=== PATIENT | female | born 1975 ===

== ENCOUNTER 2017-11-09 14:53 | Emergency (ER) | payer SELFPAY ==
[~2017-11-09] VITALS: Ht 157.5 cm; Wt 88.6 kg
[~2017-11-09 14:53] MED LIST: CEPH500C PO; DCS100C PO; HYDR-3583 PO; IBP600T1 PO; OXYC-12 PO; PREN1TAB39 PO
[2017-11-09] MEDS ORDERED: FAMOTIDINE 20 MG (PEPCID) TABLET PO STA (15:47)
--- NOTE | 2017-11-09 15:54 | ED Chest Pain ---
General Chief Complaint: Respiratory Problems Stated Complaint: CP Nursing Triage Note: patient reports SOA since thursday, gail reports that the SOA is worse in the morning and the evening before bed Nursing Sepsis Screen: No Definite Risk Source: patient Exam Limitations: language barrier (Kinyarwanda interpretation by ) History of Present Illness Date Seen by Provider: November 09, 2017 Time Seen by Provider: 15:41 Initial Comments The patient presents to the ER by private conveyance with a chief complaint for the past 3 days she's had some dull achy chest pressure and pain in the middle of her chest that is reproduced by palpation. She's had no shortness of breath, hemoptysis, cough. She has had this chest pain worked up in the past because she 's had episodes similar to this with a stress test that was negative. Her is concerned that she might just be depressed because she has lots of mild, nonspecific complaints that get worked up without any serious medical condition found. She is followed at [facility]. She is not on any medicine for her heart. She does not have a primary history of heart disease nor does she have primary family with a history of heart disease before the age of 50. She does not smoke nor does she have thyroid disorder, diabetes, hypertension. She is on control Allergies and Home Medications Allergies Coded Allergies: No Known Drug Allergies (Unverified , 06/12/11) Home Medications Cephalexin Monohydrate 500 Mg Capsule, 500 MG PO QID, (Reported) Take until gone. Hydrocodone Bit/Acetaminophen 1 Tab Tab, 1-2 TAB PO Q4HR PRN, (Reported) Vits W-Ca,Fe,Fa(<1MG) 1 Each Tablet, 1 TAB PO HS, (Reported) Patient Home Medication List Home Medication List Reviewed: Yes Review of Systems Constitutional: No chills, No diaphoresis EENTM: No Blurred Vision Respiratory: Denies Cough, Denies Orthopnea, Denies Shortness of Air Cardiovascular: See HPI, Chest Pain; Denies Edema, Denies Irregular Heart Rate , Denies Lightheadedness, Denies Palpitations, Denies Syncope Gastrointestinal: Denies Constipated, Denies Diarrhea, Denies Nausea Genitourinary: Denies Burning, Denies Discharge, Denies Flank Pain Musculoskeletal: No back pain, No joint pain Skin: No pruritus, No rash Psychiatric/Neurological: Denies Headache, Denies Numbness Past Afszfap-Rbzxvq-Kbqlbf Hx Patient Social History Alcohol Use: Denies Use Recreational Drug Use: No Smoking Status: Never a Smoker Recent Foreign Travel: No Contact w/Someone Who Travel: No Recent Infectious Disease Expo: No Recent Hopitalizations: No Immunizations Up To Date Date of Influenza Vaccine: May 03, 2012 Past Medical History Surgeries: Yes ( X2) Respiratory: No Cardiac: No Neurological: No Reproductive Disorders: No Gastrointestinal: No Musculoskeletal: No Endocrine: No Psychosocial: No Integumentary: No Blood Disorders: No Physical Exam Vital Signs Vital Signs - First Documented 11/09/17 15:29 Temp 98.6 Pulse 80 Resp 18 B/P (MAP) 113/74 (87) Pulse Ox 100 Capillary Refill : Less Than 3 Seconds General Appearance: No Apparent Distress, WD/WN, Anxious HEENT: PERRL/EOMI, Normal ENT Inspection, Pharynx Normal, Moist Mucous Membranes Neck: Full Range of Motion, Normal Inspection, Non Tender, Supple Respiratory: Lungs Clear, Normal Breath Sounds, No Accessory Muscle Use, No Respiratory Distress, Other (chest wall tender to palpation mildly) Cardiovascular: Regular Rate, Rhythm, No Edema, No Murmur, Normal Peripheral Pulses Gastrointestinal: Normal Bowel Sounds, Non Tender, Soft Extremity: Normal Capillary Refill, Normal Inspection, Normal Range of Motion, Non Tender, No Calf Tenderness, No Pedal Edema Neurologic/Psychiatric: Alert, Oriented x3, Depressed Affect Skin: Normal Color, Warm/Dry Progress/Results/Core Measures Results/Orders Lab Results Laboratory Tests Test 11/09/17 15:52 Range/Units White Blood Count 8.5 4.3-11.0 10^3/uL Red Blood Count 4.49 4.35-5.85 10^6/uL Hemoglobin 13.4 11.5-16.0 G/DL Hematocrit 40 35-52 % Mean Corpuscular Volume 89 80-99 FL Mean Corpuscular Hemoglobin 30 25-34 PG Mean Corpuscular Hemoglobin Concent 34 32-36 G/DL Red Cell Distribution Width 14.1 10.0-14.5 % Platelet Count 196 130-400 10^3/uL Mean Platelet Volume 11.2 H 7.4-10.4 FL Neutrophils (%) (Auto) 61 42-75 % Lymphocytes (%) (Auto) 27 12-44 % Monocytes (%) (Auto) 11 0-12 % Eosinophils (%) (Auto) 1 0-10 % Basophils (%) (Auto) 0 0-10 % Neutrophils # (Auto) 5.2 1.8-7.8 X 10^3 Lymphocytes # (Auto) 2.3 1.0-4.0 X 10^3 Monocytes # (Auto) 0.9 0.0-1.0 X 10^3 Eosinophils # (Auto) 0.1 0.0-0.3 10^3/uL Basophils # (Auto) 0.0 0.0-0.1 10^3/uL Prothrombin Time 13.3 12.2-14.7 SEC INR Comment 1.0 0.8-1.4 Activated Partial Thromboplast Time 27 24-35 SEC Sodium Level 138 135-145 MMOL/L Potassium Level 4.3 3.6-5.0 MMOL/L Chloride Level 106 98-107 MMOL/L Carbon Dioxide Level 22 21-32 MMOL/L Anion Gap 10 5-14 MMOL/L Blood Urea Nitrogen 12 7-18 MG/DL Creatinine 0.70 0.60-1.30 MG/DL Estimat Glomerular Filtration Rate > 60 BUN/Creatinine Ratio 17 Glucose Level 101 70-105 MG/DL Calcium Level 9.2 8.5-10.1 MG/DL Magnesium Level 2.3 1.8-2.4 MG/DL Total Bilirubin 0.3 0.1-1.0 MG/DL Aspartate Amino Transf (AST/SGOT) 15 5-34 U/L Alanine Aminotransferase (ALT/SGPT) 16 0-55 U/L Alkaline Phosphatase 87 40-136 U/L Myoglobin 20.2 10.0-92.0 NG/ML Troponin I < 0.30 <0.30 NG/ML Total Protein 7.6 6.4-8.2 GM/DL Albumin 4.1 3.2-4.5 GM/DL Lipase 38 8-78 U/L My Orders Orders - RAMOS KHAN Cbc With Automated Diff (11/09/17 15:47) Magnesium (11/09/17 15:47) Chest 1 View, Ap/Pa Only (11/09/17 15:47) Ekg Tracing (11/09/17 15:47) Cardiac Profile 1 (11/09/17 15:47) Comprehensive Metabolic Panel (11/09/17 15:47) Myoglobin Serum (11/09/17 15:47) Protime With Inr (11/09/17 15:47) Partial Thromboplastin Time (11/09/17 15:47) O2 (11/09/17 15:47) Monitor-Rhythm Ecg Trace Only (11/09/17 15:47) Aspirin Chewable Tablet (Baby Aspirin Ch (11/09/17 16:00) Saline Lock/Iv-Start (11/09/17 15:47) Lipase (11/09/17 15:47) Lidocaine 2% Viscous 15 Ml (Xylocaine Vi (11/09/17 16:00) Famotidine Tablet (Pepcid Tablet) (11/09/17 15:47) Antacid Suspension (Mylanta Suspension (11/09/17 16:00) Medications Given in ED Current Medications Medications Dose Ordered Sig/Rosio Route Start Time Stop Time Status Last Admin Dose Admin Al Hydrox/Mg Hydrox/Simethicone 30 ml ONCE ONCE PO 11/09/17 16:00 11/09/17 16:01 DC 11/09/17 16:12 30 ML Aspirin 324 mg ONCE ONCE PO 11/09/17 16:00 11/09/17 16:01 DC 11/09/17 16:12 324 MG Lidocaine HCl 15 ml ONCE ONCE PO 11/09/17 16:00 11/09/17 16:01 DC 11/09/17 16:12 15 ML Vital Signs/I&O 11/09/17 15:29 Temp 98.6 Pulse 80 Resp 18 B/P (MAP) 113/74 (87) Pulse Ox 100 Blood Pressure Mean: 87 Progress Progress Note #1: Time: 15:52 Progress Note Chest pain workup but if the troponins are negative she's been having this pain off and on for the past 3 days it's unlikely this is related to her heart. We' ll give her a GI cocktail see if this helps. There is low likelihood of DVT based on examination and history so pulmonary embolism is very unlikely. She's having no air hunger, cough, hemoptysis. Her chest wall is tender to palpation so costochondritis is possible. Progress Note #2: Time: 17:09 Progress Note Patient's pain was taken away with a GI cocktail. We will put her on some Carafate and omeprazole and have her follow up outpatient with her primary care provider. Initial ECG Impression Date: November 09, 2017 Initial ECG Impression Time: 15:42 Initial ECG Rate: 78 Initial ECG Rhythm: Normal Sinus Initial ECG Intervals: Normal Initial ECG Impression: Normal Initial ECG Comparisson: Unchanged Comment No ST elevation or depression Diagnostic Imaging Diagonstic Imaging: Xray Plain Films/CT/US/NM/MRI: chest (1v) Comments NAME: JULIUS [facility] REC#: [id number] PT STATUS: REG ER : 1975 PHYSICIAN: RAMOS KHAN MD ADMIT DATE: 11/09/17/ER Draft Date of Exam:11/09/17 CHEST 1 VIEW, AP/PA ONLY Portable AP chest at 4:01 p.m. INDICATION: Chest pain. FINDINGS: The heart size is at the upper limits of normal and the heart does seem somewhat more prominent than noted on the prior exam of 07/10/2014. This apparent increase in the heart size is in part related to the shallow degree of inspiration for this exam. The lungs are clear. There is no sign of failure, pneumonia or pleural effusion. The mediastinum is not widened. The osseous structures are intact. IMPRESSION: Allowing for the shallow degree of inspiration, there is no evidence for acute cardiopulmonary abnormality. Dictated on workstation # [id number] Dict: 11/09/17 1608 Trans: 11/09/17 1612 KB [id number] Interpreted by: AMBER GATES MD Electronically signed by: Reviewed: Reviewed by Me Departure Impression Primary Impression: Chest wall discomfort Additional Impression: GERD (gastroesophageal reflux disease) Qualified Codes: K21.9 - Gastro-esophageal reflux disease without esophagitis Disposition: HOME, SELF-CARE Condition: Improved Departure-Patient Inst. Decision time for Depature: 17:10 Referrals: [facility] (PCP) Primary Care Physician Patient Instructions: Chest Pain That Is Not Caused by the Heart (DC) Add. Discharge Instructions: Your chest wall discomfort can be from costochondritis or irritation of the chest wall and that maybe help with some ibuprofen 800 mg every 8 hours as needed. Since her pain got better with the GI cocktail were going to start some Carafate 1 tablet 4 times a day with meals and before bedtime as well as omeprazole 40 mg daily for the next 4 weeks. Call your primary care provider and get an appointment to follow-up in the next 2-4 weeks to discuss your symptoms and whether these medications made improvement in your life. All discharge instructions reviewed with patient and/or family. Voiced understanding. Scripts Omeprazole (Omeprazole) 40 Mg Capsule. 40 MG PO DAILY for 30 Days, #30 CAP 0 Refills Prov: RAMOS KHAN 11/09/17 Sucralfate (Carafate) 1 Gm Tablet 1 GM PO QIDACHS for 14 Days, #56 TAB 0 Refills Prov: RAMOS KHAN 11/09/17 Copy Copies To 1: ALY JIMENEZ DO RAMOS KHAN November 09, 2017 15:54
[2017-11-09] MEDS ORDERED: ASPIRIN 81 MG CHEW (CHILDREN'S ASA) PO ONE (16:00)
[2017-11-09] MEDS ORDERED: ANTACID SUSP 30 ML UDC (MYLANTA) PO ONE (16:00)
[2017-11-09] MEDS ORDERED: LIDOCAINE 2% VISCOUS 15 ML UDC PO ONE (16:00)
[2017-11-09 16:02] LABS: BASOPHILS % (AUTO) 0 % (0-10); EOSINOPHILS # (AUTO) 0.1 10^3/uL (0.0-0.3); EOSINOPHILS % (AUTO) 1 % (0-10); HEMATOCRIT 40 % (35-52); HEMOGLOBIN 13.4 G/DL (11.5-16.0); LYMPHOCYTES # (AUTO) 2.3 X 10^3 (1.0-4.0); LYMPHOCYTES % (AUTO) 27 % (12-44); MEAN CORPUSCULAR HEMOGLOBIN 30 PG (25-34); MEAN CORPUSCULAR HGB CONC 34 G/DL (32-36); MEAN CORPUSCULAR VOLUME 89 FL (80-99); MEAN PLATELET VOLUME 11.2 FL (7.4-10.4); MONOCYTES # (AUTO) 0.9 X 10^3 (0.0-1.0); MONOCYTES % (AUTO) 11 % (0-12); NEUTROPHILS # (AUTO) 5.2 X 10^3 (1.8-7.8); NEUTROPHILS % (AUTO) 61 % (42-75); PLATELET COUNT 196 10^3/uL (130-400); RED BLOOD COUNT 4.49 10^6/uL (4.35-5.85); RED CELL DISTRIBUTION WIDTH 14.1 % (10.0-14.5); WHITE BLOOD COUNT 8.5 10^3/uL (4.3-11.0)
--- NOTE | 2017-11-09 16:13 | Diagnostic Imaging Report ---
Portable AP chest at 4:01 p.m. INDICATION: Chest pain. FINDINGS: The heart size is at the upper limits of normal and the heart does seem somewhat more prominent than noted on the prior exam of 07/10/2014. This apparent increase in the heart size is in part related to the shallow degree of inspiration for this exam. The lungs are clear. There is no sign of failure, pneumonia or pleural effusion. The mediastinum is not widened. The osseous structures are intact. IMPRESSION: Allowing for the shallow degree of inspiration, there is no evidence for an acute cardiopulmonary abnormality. Dictated by: Dictated on workstation # [id number]
[2017-11-09 16:27] LABS: ALANINE AMINOTRANSFERASE 16 U/L (0-55); ALBUMIN 4.1 GM/DL (3.2-4.5); ALKALINE PHOSPHATASE 87 U/L (40-136); BILIRUBIN,TOTAL 0.3 MG/DL (0.1-1.0); BUN/CREATININE RATIO 17; CALCIUM 9.2 MG/DL (8.5-10.1); CARBON DIOXIDE 22 MMOL/L (21-32); CHLORIDE 106 MMOL/L (98-107); GFR ESTIMATED > 60; GLUCOSE 101 MG/DL (70-105); LIPASE 38 U/L (8-78); MAGNESIUM 2.3 MG/DL (1.8-2.4); POTASSIUM 4.3 MMOL/L (3.6-5.0); SODIUM 138 MMOL/L (135-145); TOTAL PROTEIN 7.6 GM/DL (6.4-8.2)
[2017-11-09 16:33] LABS: MYOGLOBIN SERUM 20.2 NG/ML (10.0-92.0)
[2017-11-09 16:50] LABS: PROTHROMBIN TIME PATIENT 13.3 SEC (12.2-14.7)
[2017-11-09] MEDS ORDERED: SUCR1TAB36 PO (17:12)
[2017-11-09] MEDS ORDERED: OMEP40CA36 PO (17:12)
[2017-11-09 17:17] VITALS: BP 92/63
== END 2017-11-09 17:17 | disposition home or self-care (01) ==
LOC: EDUNIT# 14:53 → ER 14:55
DX: R07.89 Other chest pain (principal); K21.9 Gastro-esophageal reflux disease without esophagitis; Z87.59 Personal history of other complications of pregnancy, childbirth and the puerperium
CPT/HCPCS: 36415; 71045; 80053; 83690; 83735; 83874; 84484; 85025; 85610; 85730; 93005; 93041

== ENCOUNTER 2022-11-19 08:15 | Emergency (ER) | payer SELFPAY ==
[~2022-11-19] VITALS: Ht 160 cm; Wt 84.3 kg
[~2022-11-19 08:15] MED LIST changes: +OMEP40CA6 PO; +SUCR1TAB36 PO
--- NOTE | 2022-11-19 08:32 | ED Chest Pain ---
General Stated Complaint: CHEST PAINS Source: patient Exam Limitations: no limitations History of Present Illness Date Seen by Provider: Nov 19, 2022 Time Seen by Provider: 08:32 Initial Comments Patient is a 47-year-old female who presents to the emergency room with her chief complaint substernal chest discomfort that mostly comes with exertion as she is doing normal housework around the home. The symptoms have been ongoing for about a month. They were at [facility] a month ago and she had a chest x-ray and was told that her heart was more enlarged than it should be. She is scheduled for a follow-up appointment with a machine setter sheet metal but not until January. Over the last couple of the days her relates that the pain has become "harder". She does feel a little short of breath with the pain. She feels a little dizzy and lightheaded with the pains. The pains do not radiate. She does not become sweaty. She is also a little bit nauseous with the pain. She is not and has never been a smoker. She has no history of hypertension or diabetes. No family history of early coronary artery disease. The only daily medication she takes is baby aspirin she has not had any today. She quit having menstrual cycles about a year ago. She is pain-free this morning. Timing/Duration: other (1 month) Severity/Quality: moderate Location: central Radiation: no radiation Activities at Onset: activity ASA po EMPLOYEE REPRESENTATIVE: No NTG SL EMPLOYEE REPRESENTATIVE: No Associated Symptoms: nausea/vomiting (nausea (min)), shortness of breath ((min)) Allergies and Home Medications Allergies Coded Allergies: No Known Drug Allergies (Unverified , 06/12/11) Patient Home Medication List Home Medication List Reviewed: Yes Cephalexin Monohydrate (Cephalexin) 500 Mg Capsule, 500 MG PO QID, (Reported) Entered as Reported by: HINA CALIX on 01/29/13 1023 Hydrocodone Bit/Acetaminophen (Lortab 5 Mg) 1 Tab Tab, 1-2 TAB PO Q4HR PRN, (Reported) Entered as Reported by: HINA CALIX on 01/29/13 1023 Omeprazole (Omeprazole) 40 Mg Capsule., 40 MG PO DAILY Prescribed by: RAMOS KHAN on 11/09/17 171 Pantoprazole Sodium (Protonix) 40 Mg Gran, 40 MG PO DAILY Prescribed by: KEELY HIGH on 11/19/22 1155 Vits W-Ca,Fe,Fa(<1MG) () 1 Each Tablet, 1 TAB PO HS, (Reported) Entered as Reported by: OZ QURESHI on 06/12/11 0924 Sucralfate (Carafate) 1 Gm Tablet, 1 GM PO QIDACHS Prescribed by: RAOMS KHAN on 11/09/17 1712 Review of Systems Review of Systems Constitutional: see HPI EENTM: No Symptoms Reported Respiratory: Shortness of Air Cardiovascular: Chest Pain Gastrointestinal: Nausea Genitourinary: No Symptoms Reported Musculoskeletal: no symptoms reported Skin: no symptoms reported Psychiatric/Neurological: No Symptoms Reported Past Lezwcfm-Ohdlxq-Tubtwy Hx Past Medical History Surgeries: Yes ( X2) Respiratory: No Cardiac: No Neurological: No Reproductive Disorders: No Gastrointestinal: No Musculoskeletal: No Endocrine: No Psychosocial: No Integumentary: No Blood Disorders: No Physical Exam Vital Signs Vital Signs - First Documented 11/19/22 08:22 Temp 36.8 Pulse 71 Resp 16 B/P (MAP) 108/69 (82) Pulse Ox 99 O2 Delivery Room Air Capillary Refill : Height, Weight, BMI Height: 5'2.00" Weight: 195lbs. 6.0oz. 88.833749lw; 35.66 BMI Method:Stated General Appearance: No Apparent Distress, WD/WN HEENT: PERRL/EOMI Neck: Normal Inspection, Supple Respiratory: No Chest Non Tender; Lungs Clear, Normal Breath Sounds, No Accessory Muscle Use, No Respiratory Distress Cardiovascular: Regular Rate, Rhythm, Normal Peripheral Pulses Gastrointestinal: Normal Bowel Sounds, Non Tender, Soft Extremity: Normal Inspection, Normal Range of Motion, No Pedal Edema Neurologic/Psychiatric: Alert, Oriented x3, No Motor/Sensory Deficits, Normal Mood/Affect, assistant basketball coach II-XII Norm as Tested Skin: Normal Color, Warm/Dry Progress/Results/Core Measures Results/Orders Lab Results Laboratory Tests Test 11/19/22 08:33 Range/Units White Blood Count 6.1 4.3-11.0 10^3/uL Red Blood Count 4.23 3.80-5.11 10^6/uL Hemoglobin 12.2 11.5-16.0 g/dL Hematocrit 37 35-52 % Mean Corpuscular Volume 87 80-99 fL Mean Corpuscular Hemoglobin 29 25-34 pg Mean Corpuscular Hemoglobin Concent 33 32-36 g/dL Red Cell Distribution Width 13.8 10.0-14.5 % Platelet Count 202 130-400 10^3/uL Mean Platelet Volume 11.4 9.0-12.2 fL Immature Granulocyte % (Auto) 0 % Neutrophils (%) (Auto) 57 42-75 % Lymphocytes (%) (Auto) 32 12-44 % Monocytes (%) (Auto) 8 0-12 % Eosinophils (%) (Auto) 2 0-10 % Basophils (%) (Auto) 0 0-10 % Neutrophils # (Auto) 3.5 1.8-7.8 10^3/uL Lymphocytes # (Auto) 2.0 1.0-4.0 10^3/uL Monocytes # (Auto) 0.5 0.0-1.0 10^3/uL Eosinophils # (Auto) 0.1 0.0-0.3 10^3/uL Basophils # (Auto) 0.0 0.0-0.1 10^3/uL Immature Granulocyte # (Auto) 0.0 0.0-0.1 10^3/uL Prothrombin Time 13.2 12.2-14.7 SEC INR Comment 1.0 0.8-1.4 Activated Partial Thromboplast Time 30 24-35 SEC Sodium Level 140 135-145 MMOL/L Potassium Level 4.3 3.6-5.0 MMOL/L Chloride Level 106 98-107 MMOL/L Carbon Dioxide Level 26 21-32 MMOL/L Anion Gap 8 5-14 MMOL/L Blood Urea Nitrogen 15 7-18 MG/DL Creatinine 0.62 0.60-1.30 MG/DL Estimat Glomerular Filtration Rate 110 BUN/Creatinine Ratio 24 Glucose Level 91 70-105 MG/DL Calcium Level 9.6 8.5-10.1 MG/DL Corrected Calcium 9.7 8.5-10.1 MG/DL Magnesium Level 1.8 1.6-2.4 MG/DL Total Bilirubin 0.3 0.1-1.0 MG/DL Aspartate Amino Transf (AST/SGOT) 17 5-34 U/L Alanine Aminotransferase (ALT/SGPT) 21 0-55 U/L Alkaline Phosphatase 124 40-136 U/L Troponin I < 0.028 <0.028 NG/ML Total Protein 7.1 6.4-8.2 GM/DL Albumin 3.9 3.2-4.5 GM/DL My Orders Orders - KEELY HIGH MD Ekg Tracing (11/19/22 08:22) Cbc With Automated Diff (11/19/22 08:32) Magnesium (11/19/22 08:32) Chest 1 View, Ap/Pa Only (11/19/22 08:32) Comprehensive Metabolic Panel (11/19/22 08:32) Protime With Inr (11/19/22 08:32) Partial Thromboplastin Time (11/19/22 08:32) O2 (11/19/22 08:32) Monitor-Rhythm Ecg Trace Only (11/19/22 08:32) Ed Iv/Invasive Line Start (11/19/22 08:32) Troponin I [place] (11/19/22 08:32) Aspirin Chewable Tablet (Baby Aspirin Ch (11/19/22 08:45) Definity 1.5ml Vial (11/19/22 ) Echo Stress W/Contrast (11/19/22 ) Medications Given in ED Current Medications Medications Dose Ordered Sig/Rosio Route Start Time Stop Time Status Last Admin Dose Admin Aspirin 324 mg ONCE ONCE PO 11/19/22 08:45 11/19/22 08:46 DC 11/19/22 09:07 324 MG Vital Signs/I&O 11/19/22 11/19/22 11/19/22 08:22 10:44 12:06 Temp 36.8 Pulse 71 64 Resp 16 B/P (MAP) 108/69 (82) 102/65 (77) 107/64 Pulse Ox 99 O2 Delivery Room Air Room Air Progress Progress Note : Time: 10:16 Progress Note Patient seen and evaluated by me, evaluation today includes physical exam, "cardiac work-up" to include CBC, Chem-12, magnesium, troponin, EKG and chest x- ray. Pertinent physical exam findings well-developed well-nourished 47-year-old female in no acute distress. No reproducible chest wall tenderness. Heart is regular with loud left upper sternal border systolic murmur. I can also auscultate quieter murmur in the right upper sternal border. Lungs are clear, abdomen is soft. No lower extremity edema. No focal neurologic deficits. Differential diagnosis based on history and physical exam atypical pericarditis, acute coronary syndrome, congestive failure. Labs, EKG and chest x-ray independently evaluated by me. Chest x-ray interpreted by radiology as cardiomegaly without evidence of increased pulmonary vascular congestion. EKG shows normal sinus rhythm without ectopy, ST segment change. She does have T wave inversion in lead III. Suggestion of right bundle branch block. Labs including CBC, Chem-12, troponin all within normal limits, coags within normal limits. Case was discussed with Dr. Rojas, I feel the patient would best be served by further cardiac evaluation, echocardiogram. Case was also discussed with Dr. Elise on for [facility] hospitalist service. Who accepts the patient for observation admission. Of note Dr. Rojas did evaluate the patient here in the emergency department and ordered a stress echo from the ED Initial ECG Impression Date: Nov 19, 2022 Initial ECG Impression Time: 08:28 Initial ECG Rate: 76 Initial ECG Rhythm: Normal Sinus Initial ECG Intervals: Normal Comment Inverted T waves lead III with ST flattening in aVF. Possible right ventricular conduction delay leads V1 V2 with RR' V2 no overt ST segment elevation or depression. No ectopy. Normal intervals Diagnostic Imaging Diagonstic Imaging: Xray Plain Films/CT/US/NM/MRI: chest Comments [facility], [place] NAME: JULIUS JOHN [facility] REC#: [id number] PT STATUS: REG ER : 1975 PHYSICIAN: KEELY HIGH MD ADMIT DATE: 11/19/22/ER Draft Date of Exam:11/19/22 CHEST 1 VIEW, AP/PA ONLY INDICATION: Chest pain for over a month. TECHNIQUE: Single view chest 8:49 AM. CORRELATION STUDY: 11/09/2017 FINDINGS: Heart size and mediastinum are enlarged and prominent. May be somewhat accentuated by technique and limited depth of inspiration. Vasculature within normal limits. The lungs are clear with no consolidating infiltrate. There is no significant effusion or pneumothorax. IMPRESSION: 1. Borderline cardiac enlargement without failure. Dictated on workstation # [id number] Dict: 11/19/22 0849 Trans: 11/19/22 0850 DO [id number] Interpreted by: CHELSIE BEASLEY DO Electronically signed by: Departure Communication (Admissions) Time/Spoke to Admitting Phy: 09:[address] Elise ([facility] hospitalist) accepts to Step down with cards c onsult Impression Primary Impression: Chest pain Qualified Codes: R07.9 - Chest pain, unspecified Additional Impression: Aortic regurgitation Qualified Codes: I35.1 - Nonrheumatic aortic (valve) insufficiency Disposition: 01 HOME, SELF-CARE Condition: Stable Admissions Decision to Admit Reason: Admit from ER (General) Decision to Admit/Date: Nov 19, 2022 Time/Decision to Admit Time: 09:40 Departure-Patient Inst. Decision time for Depature: 11:53 Referrals: [facility]/ (PCP/Family) Primary Care Physician Patient Instructions: Chest Pain, Adult ED Add. Discharge Instructions: You will start a new prescription today called Protonix. Take 1 tablet daily. Please follow-up with [facility]. Please follow-up with Dr. Rojas as instructed. Please come back to the emergency department for any new, worsening or concerning symptoms. Comenzar kalyani nueva receta hoy llamada Protonix. Jeremiah 1 comprimido al da. Por favor, abraham un seguimiento con la [facility]. Abraham un seguimiento con el Dr. Rojas segn las instrucciones. Vuelva al departamento de emergencias por cualquier sntoma nuevo, que empeore o que le preocupe. Scripts Pantoprazole Sodium (Protonix) 40 Mg [place]. 40 MG PO DAILY, #30 TAB Prov: KEELY HIGH MD 11/19/22 Copy Copies To 1: ALY JIMENEZ DO Copies To 2: CHANDNI ROJAS MD, KATHRYN M MD Nov 19, 2022 08:32
[2022-11-19 08:39] LABS: BASOPHILS % (AUTO) 0 % (0-10); EOSINOPHILS # (AUTO) 0.1 10^3/uL (0.0-0.3); EOSINOPHILS % (AUTO) 2 % (0-10); HEMATOCRIT 37 % (35-52); HEMOGLOBIN 12.2 g/dL (11.5-16.0); LYMPHOCYTES % (AUTO) 32 % (12-44); MEAN CORPUSCULAR HEMOGLOBIN 29 pg (25-34); MEAN CORPUSCULAR HGB CONC 33 g/dL (32-36); MEAN CORPUSCULAR VOLUME 87 fL (80-99); MEAN PLATELET VOLUME 11.4 fL (9.0-12.2); MONOCYTES # (AUTO) 0.5 10^3/uL (0.0-1.0); MONOCYTES % (AUTO) 8 % (0-12); NEUTROPHILS # (AUTO) 3.5 10^3/uL (1.8-7.8); NEUTROPHILS % (AUTO) 57 % (42-75); PLATELET COUNT 202 10^3/uL (130-400); WHITE BLOOD COUNT 6.1 10^3/uL (4.3-11.0)
[2022-11-19] MEDS ORDERED: ASPIRIN 81 MG CHEW (CHILDREN'S ASA) PO ONE (08:45)
[2022-11-19 08:48] LABS: ALBUMIN 3.9 GM/DL (3.2-4.5); CHLORIDE 106 MMOL/L (98-107); POTASSIUM 4.3 MMOL/L (3.6-5.0); SODIUM 140 MMOL/L (135-145)
[2022-11-19 08:49] LABS: CALCIUM 9.6 MG/DL (8.5-10.1)
[2022-11-19 08:50] LABS: GLUCOSE 91 MG/DL (70-105); TOTAL PROTEIN 7.1 GM/DL (6.4-8.2)
--- NOTE | 2022-11-19 08:50 | Diagnostic Imaging Report ---
INDICATION: Chest pain for over a month. TECHNIQUE: Single view chest 8:49 AM. CORRELATION STUDY: 11/09/2017 FINDINGS: Heart size and mediastinum are enlarged and prominent. May be somewhat accentuated by technique and limited depth of inspiration. Vasculature within normal limits. The lungs are clear with no consolidating infiltrate. There is no significant effusion or pneumothorax. IMPRESSION: 1. Borderline cardiac enlargement without failure. Dictated by: Dictated on workstation # [id number]
[2022-11-19 08:51] LABS: CARBON DIOXIDE 26 MMOL/L (21-32); PROTHROMBIN TIME PATIENT 13.2 SEC (12.2-14.7)
[2022-11-19 08:52] LABS: BILIRUBIN,TOTAL 0.3 MG/DL (0.1-1.0)
[2022-11-19 08:54] LABS: ALKALINE PHOSPHATASE 124 U/L (40-136); CREATININE SERUM 0.62 MG/DL (0.60-1.30); GFR ESTIMATED 110
[2022-11-19 08:55] LABS: BUN/CREATININE RATIO 24
[2022-11-19 08:57] LABS: ALANINE AMINOTRANSFERASE 21 U/L (0-55); MAGNESIUM 1.8 MG/DL (1.6-2.4)
--- NOTE | 2022-11-19 10:23 | Consultation-Cardiology ---
HPI-Cardiology Cardiology Consultation Date of Consultation 11/19/22 Date of Admission Time Seen by Provider: 10:20 Indication: Chest pain HPI 47-year-old [place]vian-speaking lady with no significant past medical history has been having chest pain for about 2 to 3 months. Retrosternal, became worse over the past few days. Patient was scheduled for an outpatient evaluation later in January. She was unable to wait, became concerned about her chest pain came into the emergency room. On my evaluation she was feeling better, no active chest pain was reported. No palpitation. Home Medications & Allergies Allergies: Coded Allergies: No Known Drug Allergies (Unverified , 06/12/11) Home Medication List Reviewed: Yes [id number] Hx Patient Social History Marital Status: Employed/Student: employed Recent Hopitalizations: No Alcohol Use?: No Immunizations Up To Date Date of Influenza Vaccine: May 03, 2012 Past Medical History Discussed below Family Medical History Significant Family History: No Pertinent Family Hx Review of Systems-General Review of Systems Constitutional: no symptoms reported, see HPI EENTM: see HPI, no symptoms reported Respiratory: no symptoms reported, see HPI, dyspnea on exertion Cardiovascular: see HPI, chest pain Gastrointestinal: no symptoms reported, see HPI, nausea Genitourinary: no symptoms reported, see HPI Musculoskeletal: no symptoms reported, see HPI Skin: no symptoms reported, see HPI Psychiatric/Neurological: No Symptoms Reported, See HPI Reviewed Test Results Reviewed Test Results Lab Laboratory Tests Test 11/19/22 08:33 Range/Units White Blood Count 6.1 4.3-11.0 10^3/uL Red Blood Count 4.23 3.80-5.11 10^6/uL Hemoglobin 12.2 11.5-16.0 g/dL Hematocrit 37 35-52 % Mean Corpuscular Volume 87 80-99 fL Mean Corpuscular Hemoglobin 29 25-34 pg Mean Corpuscular Hemoglobin Concent 33 32-36 g/dL Red Cell Distribution Width 13.8 10.0-14.5 % Platelet Count 202 130-400 10^3/uL Mean Platelet Volume 11.4 9.0-12.2 fL Immature Granulocyte % (Auto) 0 % Neutrophils (%) (Auto) 57 42-75 % Lymphocytes (%) (Auto) 32 12-44 % Monocytes (%) (Auto) 8 0-12 % Eosinophils (%) (Auto) 2 0-10 % Basophils (%) (Auto) 0 0-10 % Neutrophils # (Auto) 3.5 1.8-7.8 10^3/uL Lymphocytes # (Auto) 2.0 1.0-4.0 10^3/uL Monocytes # (Auto) 0.5 0.0-1.0 10^3/uL Eosinophils # (Auto) 0.1 0.0-0.3 10^3/uL Basophils # (Auto) 0.0 0.0-0.1 10^3/uL Immature Granulocyte # (Auto) 0.0 0.0-0.1 10^3/uL Prothrombin Time 13.2 12.2-14.7 SEC INR Comment 1.0 0.8-1.4 Activated Partial Thromboplast Time 30 24-35 SEC Sodium Level 140 135-145 MMOL/L Potassium Level 4.3 3.6-5.0 MMOL/L Chloride Level 106 98-107 MMOL/L Carbon Dioxide Level 26 21-32 MMOL/L Anion Gap 8 5-14 MMOL/L Blood Urea Nitrogen 15 7-18 MG/DL Creatinine 0.62 0.60-1.30 MG/DL Estimat Glomerular Filtration Rate 110 BUN/Creatinine Ratio 24 Glucose Level 91 70-105 MG/DL Calcium Level 9.6 8.5-10.1 MG/DL Corrected Calcium 9.7 8.5-10.1 MG/DL Magnesium Level 1.8 1.6-2.4 MG/DL Total Bilirubin 0.3 0.1-1.0 MG/DL Aspartate Amino Transf (AST/SGOT) 17 5-34 U/L Alanine Aminotransferase (ALT/SGPT) 21 0-55 U/L Alkaline Phosphatase 124 40-136 U/L Troponin I < 0.028 <0.028 NG/ML Total Protein 7.1 6.4-8.2 GM/DL Albumin 3.9 3.2-4.5 GM/DL Physical Exam Physical Exam Vital Signs Vital Signs - First Documented 11/19/22 08:22 Temp 36.8 Pulse 71 Resp 16 B/P (MAP) 108/69 (82) Pulse Ox 99 O2 Delivery Room Air Capillary Refill : Less Than 3 Seconds Height, Weight, BMI Height: 5'2.00" Weight: 195lbs. 6.0oz. [id number]; 32.00 BMI Method:Stated General Appearance: No Apparent Distress, WD/WN Eyes: Bilateral Eye Normal Inspection, Bilateral Eye PERRL, Bilateral Eye EOMI HEENT: PERRL/EOMI, TMs Normal, Normal ENT Inspection, Pharynx Normal, Moist Mucous Membranes Neck: Full Range of Motion, Normal Inspection, Non Tender, Supple, Carotid Bruit Respiratory: Chest Non Tender, Normal Breath Sounds, No Accessory Muscle Use, No Respiratory Distress Cardiovascular: Regular Rate, Rhythm, No Edema, No Gallop, No JVD, Normal Peripheral Pulses, Systolic Murmur Gastrointestinal: Normal Bowel Sounds, No Organomegaly, No Pulsatile Mass, Non Tender, Soft Back: Normal Inspection, No CVA Tenderness, No Vertebral Tenderness Extremity: Normal Capillary Refill, Normal Inspection, Normal Range of Motion, Non Tender, No Calf Tenderness, No Pedal Edema Neurologic/Psychiatric: Alert, Oriented x3, No Motor/Sensory Deficits, Normal Mood/Affect Skin: Normal Color, Warm/Dry Lymphatic: No Adenopathy A/P-Cardiology Admission Diagnosis Chest pain Shortness of breath Obesity Assessment/Plan Chest pain nonspecific etiology, atypical in presentation EKG did not show any acute abnormality, cardiac enzymes were normal I am planning to proceed with a stress test today Systolic murmur noted incidentally. I will evaluate 2D echo Shortness of breath associated with the chest pain. Planning for stress test Obesity, BMI 32, we discussed weight loss Clinical Quality Measures AMI/AHF: ASA po Prior to arrival: CHANDNI Beyer MD Nov 19, 2022 10:23
[2022-11-19 10:44] VITALS: BP 102/65
[2022-11-19] MEDS ORDERED: PANT40SU PO (11:55)
[2022-11-19 12:06] VITALS: BP 107/64
== END 2022-11-19 12:07 | disposition home or self-care (01) ==
LOC: EDUNIT# 08:15 → ER 08:18
DX: I35.1 Nonrheumatic aortic (valve) insufficiency (principal)
CPT/HCPCS: 71045; 80053; 83735; 84484; 85025; 85610; 85730; 93005; 93041; C8929; C8930; 36415; 93306